=== PATIENT | male | born 1955 | race Caucasian/White ===

== ENCOUNTER 2022-03-15 01:42 | Emergency (ER) | payer OTHER, MEDICAID ==
[~2022-03-15] VITALS: Ht 175.3 cm; Wt 81.6 kg
[2022-03-15 01:50] VITALS: BP_SYST 173
[2022-03-15 02:30] VITALS: BP_SYST 159
== END 2022-03-15 02:30 ==
LOC: SED 01:42
DX: Z02.89 Encounter for other administrative examinations (principal); I10 Essential (primary) hypertension; Z79.899 Other long term (current) drug therapy
CPT/HCPCS: 99283